=== PATIENT | female | born 1930 | race Caucasian/White ===

== ENCOUNTER 2017-01-21 10:51 | Inpatient (IN) | payer OTHER, MEDICAID ==
[~2017-01-21] VITALS: Ht 157.5 cm; Wt 68.0 kg
[2017-01-21 10:57] VITALS: Ht 157.5 cm; Wt 68.0 kg
[2017-01-21 12:32] LABS: BASOPHIL % 0.3 % (0-2); PLATELET COUNT 132 x10^3mcL (130-400)
[2017-01-21 12:34] LABS: microscopic required? YES; urine erythrocyte TRACE (NEGATIVE)
[2017-01-21 12:37] LABS: RED CELL DISTRIBUTION WIDTH 14.6 % (11.5-14.5)
[2017-01-21 12:43] LABS: CALCIUM 8.8 mg/dL (8.5-10.1); CARBON DIOXIDE 29.2 mmol/L (21-32); CHLORIDE SERUM 106 mmol/L (98-107); CREATININE SERUM 1.3 mg/dL (0.6-1.0); GLUCOSE SERUM 114 mg/dL (74-106); POTASSIUM SERUM 3.7 mmol/L (3.5-5.1); SODIUM SERUM 141 mmol/L (136-145)
[2017-01-21 12:48] LABS: ALBUMIN 3.8 g/dL (3.4-5.0); ALKALINE PHOSPHATASE 85 U/L (46-116); ALT/SGPT 22 U/L (14-59); AST/SGOT 47 U/L (15-37); BILIRUBIN TOTAL 0.42 mg/dL (0.20-1.00); TOTAL PROTEIN, SERUM 7.7 g/dL (6.4-8.2)
[2017-01-21] MEDS ORDERED: NOR5 PO (12:54)
[2017-01-21] MEDS ORDERED: LASIX20 MG PO (12:54)
[2017-01-21] MEDS ORDERED: SENNA8.6 M2 PO (12:55)
[2017-01-21] MEDS ORDERED: MIRTAZAPINE15 M2 PO (12:55)
[2017-01-21] MEDS ORDERED: OMEPRAZOLE40 M1 PO (12:55)
[2017-01-21 15:14] LABS: T3 TOTAL 0.81 ng/mL
[2017-01-21 15:15] LABS: MAGNESIUM 2.2 mg/dL (1.8-2.4); PHOSPHOROUS 3.9 mg/dL (2.5-4.9)
[2017-01-21 15:31] LABS: FREE T4 0.96 ng/dL (0.76-1.46); FREE THYROXINE INDEX 2.8 ug/dL (1.4-4.5); T4(THYROXINE) 8.1 ug/dL (4.7-13.3)
[2017-01-21 15:39] VITALS: BP 176/61
[2017-01-21 20:33] VITALS: BP 169/54
[2017-01-22 05:44] VITALS: BP 114/68
[2017-01-22 06:44] LABS: BASOPHIL % 0.3 % (0-2)
[2017-01-22 06:53] LABS: PLATELET COUNT 129 x10^3mcL (130-400); RED CELL DISTRIBUTION WIDTH 14.8 % (11.5-14.5)
[2017-01-22 07:44] LABS: CALCIUM 8.6 mg/dL (8.5-10.1); CARBON DIOXIDE 30.4 mmol/L (21-32); CHLORIDE SERUM 106 mmol/L (98-107); CREATININE SERUM 1.2 mg/dL (0.6-1.0); GLUCOSE SERUM 104 mg/dL (74-106); PHOSPHOROUS 4.3 mg/dL (2.5-4.9); SODIUM SERUM 143 mmol/L (136-145)
[2017-01-22 09:54] VITALS: BP 103/46
[2017-01-22 17:42] VITALS: BP 121/39
[2017-01-22 20:35] VITALS: BP 98/36
[2017-01-23 05:13] VITALS: BP 175/54
[2017-01-23 06:30] LABS: CALCIUM 8.4 mg/dL (8.5-10.1); CARBON DIOXIDE 29.2 mmol/L (21-32); CHLORIDE SERUM 109 mmol/L (98-107); CREATININE SERUM 1.1 mg/dL (0.6-1.0); GLUCOSE SERUM 106 mg/dL (74-106); MAGNESIUM 2.1 mg/dL (1.8-2.4); PHOSPHOROUS 4.2 mg/dL (2.5-4.9); POTASSIUM SERUM 4.3 mmol/L (3.5-5.1); SODIUM SERUM 143 mmol/L (136-145)
[2017-01-23 06:55] LABS: PLATELET COUNT 128 x10^3mcL (130-400); RED CELL DISTRIBUTION WIDTH 15.2 % (11.5-14.5)
[2017-01-23 08:59] VITALS: BP 155/50
[2017-01-23 11:41] LABS: ATYPICAL LYMPH 3 %; BAND NEUTROPHIL 1 % (0-10); BASOPHIL 0 % (0-2); MONOCYTE 19 % (0-7); SEGMENTED NEUTROPHILS 37 % (37-75)
[2017-01-23 11:42] LABS: PLATELET MORPHOLOGY PLATELETS DECREASED; rbc morphology (normal/abnorm) ABNORMAL (NORMAL)
[2017-01-23 13:34] VITALS: BP 99/51
[2017-01-23 16:45] VITALS: BP 167/55
[2017-01-23 19:30] VITALS: BP 145/50
[2017-01-23 20:46] VITALS: BP 112/58
[2017-01-24 06:06] VITALS: BP 176/62
[2017-01-24 06:41] LABS: CALCIUM 8.5 mg/dL (8.5-10.1); CARBON DIOXIDE 27.9 mmol/L (21-32); CHLORIDE SERUM 108 mmol/L (98-107); CREATININE SERUM 1.1 mg/dL (0.6-1.0); GLUCOSE SERUM 103 mg/dL (74-106); MAGNESIUM 1.8 mg/dL (1.8-2.4); PHOSPHOROUS 3.8 mg/dL (2.5-4.9); POTASSIUM SERUM 4.1 mmol/L (3.5-5.1); SODIUM SERUM 141 mmol/L (136-145)
[2017-01-24 07:01] LABS: BASOPHIL % 0.3 % (0-2)
[2017-01-24 07:14] LABS: PLATELET COUNT 124 x10^3mcL (130-400); RED CELL DISTRIBUTION WIDTH 14.7 % (11.5-14.5)
[2017-01-24 09:31] VITALS: BP 176/49
[2017-01-24] MEDS ORDERED: ECO81 PO (10:02)
[2017-01-24] MEDS ORDERED: ZES20 PO (10:02)
[2017-01-24] MEDS ORDERED: LIPI20 PO (10:03)
[2017-01-24] MEDS ORDERED: NOR10 PO (10:04)
[2017-01-24 12:08] VITALS: BP 130/52; BP 138/50
[2017-01-24 13:06] VITALS: BP 138/50
[2017-01-24] MEDS ORDERED: ZESTRIL20 MG PO (14:52)
[2017-01-24 17:56] VITALS: BP 130/52
== END 2017-01-24 20:15 | disposition home or self-care (01) | DRG 205 ==
LOC: ED 10:51 → DU 14:23
PROVIDERS: Emergency Medicine; Family Medicine; ADMIT Family Medicine
DX: M94.0 Chondrocostal junction syndrome [Tietze] (principal); N17.0 Acute kidney failure with tubular necrosis; N39.0 Urinary tract infection, site not specified; D68.69 Other thrombophilia; I70.1 Atherosclerosis of renal artery; I12.9 Hypertensive chronic kidney disease with stage 1 through stage 4 chronic kidney disease, or unspecified chronic kidney disease; N18.9 Chronic kidney disease, unspecified; R73.03 Prediabetes; E87.8 Other disorders of electrolyte and fluid balance, not elsewhere classified; K21.9 Gastro-esophageal reflux disease without esophagitis; R74.0 Nonspecific elevation of levels of transaminase and lactic acid dehydrogenase [LDH]; R80.9 Proteinuria, unspecified; E78.5 Hyperlipidemia, unspecified; E66.3 Overweight; Z68.27 Body mass index [BMI] 27.0-27.9, adult; Z86.73 Personal history of transient ischemic attack (TIA), and cerebral infarction without residual deficits
CPT/HCPCS: 82962; 83880; 84439; 90658; J0696; J1885; J7030; Q0092